=== PATIENT | female | born 1985 | race Hispanic/Latino ===

== ENCOUNTER 2017-06-24 01:51 | Emergency (ER) | payer OTHER ==
[2017-06-24 02:09] VITALS: BP 137/88; TEMP 98
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
== END 2017-06-24 04:04 | disposition home or self-care (01) ==
LOC: H.ER 01:51 → EDBD 01:51 → H.ER 04:04
DX: Z04.41 Encounter for examination and observation following alleged adult rape (principal); E03.9 Hypothyroidism, unspecified